=== PATIENT | male | born 1960 | race Two or more races ===

== ENCOUNTER 2021-03-18 06:22 | Outpatient (CLI) | payer OTHER | END 2021-03-18 06:23 | disposition home or self-care (01) | LOC: LAB 06:22 | PROVIDERS: ATTEND Orthopaedic Surgery | DX: E56.1 Deficiency of vitamin K (principal) ==

== ENCOUNTER 2023-10-31 06:06 | Outpatient (CLI) | payer OTHER | END 2023-10-31 06:07 | disposition home or self-care (01) | LOC: LAB 06:06 | PROVIDERS: ATTEND Orthopaedic Surgery | DX: E55.9 Vitamin D deficiency, unspecified (principal); M85.9 Disorder of bone density and structure, unspecified; E56.1 Deficiency of vitamin K ==

== ENCOUNTER → 2023-11-03 08:20 | Outpatient (CLI) | payer OTHER | END | disposition home or self-care (01) | LOC: NUCLEAR 08:20 | PROVIDERS: ATTEND Orthopaedic Surgery | DX: M81.0 Age-related osteoporosis without current pathological fracture (principal) ==